=== PATIENT | male | born 1965 | race Caucasian/White ===

== ENCOUNTER 2021-11-21 04:41 | Inpatient (IN) | payer OTHER ==
[~2021-11-21] VITALS: Ht 172.7 cm; Wt 89.8 kg
[2021-11-21 09:00] VITALS: BP 115/67; BP 151/67
[2021-11-21 11:09] LABS: CHOLESTEROL 67 mg/dL (<200); HDL CHOLESTEROL 35 mg/dL (>40); LDL CHOLESTEROL 12 mg/dL (<100); TC:HDL 1.9 Ratio (Not establshd); TRIGLYCERIDE 100 mg/dL (<150); VLDL 20 mg/dL (<40)
[2021-11-21 12:00] VITALS: BP 151/67
[2021-11-21 12:42] LABS: CALCIUM 8.5 mg/dL (8.5-10.1); CREATININE 2.9 mg/dL (0.7-1.3); POTASSIUM 5.5 mmol/L (3.5-5.1)
[2021-11-21 12:46] LABS: % SATURATION 6 % (20-39); IRON 23 ug/dL (65-175); TIBC 360 ug/dL (250-450)
[2021-11-21 13:21] LABS: FOLIC ACID 12.3 ng/mL (8.6-58.9)
[2021-11-21 15:00] VITALS: BP 111/76
--- NOTE | 2021-11-21 19:57 | NUR ---
Pt is A&0x4, VS stable and afebrile. Pt was given GI cocktail to r/o possible GI issues which could be causing elevated troponin. Elevated troponin was reported to TOWER DIRECTOR and documented. Pt reported that the pain is not d/t GI and that his chest hurts. When asked pt reported that at other facility he was given Demerol which is the only thing that helped. Nitroglycerine was offered and one tab given. Pt stated that it hasn't helped in the past. Continue to monitor.
[2021-11-21] MEDS ORDERED: CARVEDILOL12.5 MG PO (20:14)
[2021-11-21] MEDS ORDERED: WARFARIN SODIUM5 MG PO (20:14)
[2021-11-21 20:15] VITALS: BP 100/74
[2021-11-21] MEDS ORDERED: PLAVIX 75 MG TA75 MG PO (20:15)
[2021-11-21] MEDS ORDERED: LIPITOR40 MG PO (20:16)
[2021-11-21] MEDS ORDERED: TORSEMIDE100 MG PO (20:16)
[2021-11-21] MEDS ORDERED: OMEPRAZOLE40 MG PO (20:17)
[2021-11-21] MEDS ORDERED: DEPAKOTE 250MG250 MG PO (20:17)
[2021-11-21] MEDS ORDERED: ASA81BEC PO (20:18)
[2021-11-22 04:45] VITALS: BP 125/90
[2021-11-22 07:45] VITALS: BP 106/79
--- NOTE | 2021-11-22 08:37 | NUR ---
PT AMBULATING TO BATHROOM WITH STANDBY ASSIST AND IS TOLERATING FAIR. COMPLAINING GENERALIZED NON CARDIC CHEST PAIN--REFUSED PAIN MEDS. FREQUENT OBSERVATION.
[2021-11-22 09:53] LABS: ABSOLUTE NEUTROPHILS 5.2 thou/uL (1.4-8.2); BASOPHILS 1.1 % (0.0-2.0); EOSINOPHILS 2.3 % (0.0-3.0); HEMATOCRIT 29.7 % (42.0-52.0); INR 1.36; MCH 23.8 pg (26.0-34.0); MCHC 30.3 g/dL (28.0-37.0); MCV 78.6 fL (80.0-100.0); MONOCYTES 7.4 % (1.0-8.0); PLATELET COUNT 554 thou/uL (150-400); POLYS 66.2 % (36.0-66.0); PROTIME 14.6 Seconds (10.5-12.1); RBC 3.78 mil/uL (4.50-6.00); RDW 18.8 % (10.5-14.5); WBC 7.8 thou/uL (4.0-11.0)
[2021-11-22 10:10] LABS: CALCIUM 8.4 mg/dL (8.5-10.1); CREATININE 3.2 mg/dL (0.7-1.3); MAGNESIUM 1.7 mg/dL (1.8-2.4); POTASSIUM 5.1 mmol/L (3.5-5.1)
[2021-11-22 13:00] VITALS: BP 124/94
[2021-11-22 16:00] VITALS: BP 128/87
--- NOTE | 2021-11-22 18:28 | NUR ---
PT ALERT AND ORIENTED TIMES FOUR, WITH VERY BLUNTED AFFECT AT THE START OF THE SHIFT. VSS, IVF INFUSING PER ORDER. PT C/O PAIN PRN PAIN MEDICATIONS CONTROLLING PAIN WELL. PT TOLERATES MEDS AND MEALS. PT UP TO RESTROOM WITH STANDBY ASSIST. PT AT BEDSIDE THIS EVENING. WILL CONTINUE TO MONITOR.
[2021-11-22 20:57] VITALS: BP 147/92
[2021-11-23 05:51] VITALS: BP 106/86
--- NOTE | 2021-11-23 09:35 | HC ---
[facility] [place] [address] CONSULTATION Name: RUBEN DONOHUE Room #: 218-P [facility] IN ..#: [id number] Admission: 11/21/21 Attend Phys: Willie Lopez MD Discharge: Date of : 61 Report #: [id number] THIS REPORT FOR: cc: Courtney Martinez MD,Courtney HicksgaLd romero MD ~ cc: Inocente Ge MD, Courtney Martinez MD, Rosalinda Broussard, GASTON DATE OF SERVICE: 11/22/2021 HISTORY OF PRESENT ILLNESS: The patient is a 56-year-old male who had a recent WV requiring cardiac catheterization with stent placement on 11/10/2021. This was performed at [facility]. He was discharged home. He was readmitted at his local facility for recurrent chest pain as well as midepigastric abdominal pain, transferred here for further evaluation. He is being evaluated by Cardiology at this time. Plan is for echocardiogram. They have been following his labs and EKGs. Reason for GI consultation is previous history of gastric bypass surgery. He states this was 8 years ago. The patient states he has had a previous history of peptic ulcer disease. It appears he had an upper endoscopy and a colonoscopy approximately 7 or 8 months ago. I do not have a copy of these results. He states they found a small ulceration on upper endoscopy. No signs of bleeding at that time, the patient had already been taking Prilosec as well as Carafate, which he has been taking for many years. He denies any nausea or vomiting. He denies any dysphagia. His weight has been stable. His bowel movements have been normal. He denies any melanotic stools, bright red blood or maroon-colored stools. He is averaging bowel movement approximately every 3 days. Colonoscopy reportedly was negative. He states that no polyps were noted on exam. His hemoglobin here on admission is 9.0. I do not have a copy of the old ones to compare. On admission, he was complaining of upper chest pain as well as midepigastric abdominal pain. He states the pain has now improved. He denies any shortness of breath. No fevers or chills currently. No cough. PAST MEDICAL HISTORY: Recent STEMI, requiring stent placement, history of coronary artery disease, hypertension, chronic renal disease, COPD with O2 use at home. Degenerative joint disease, obesity, history of peptic ulcer disease, previous history of gastric bypass for obesity, approximately 8 years ago, left knee surgery, previous history of DVT. REVIEW OF SYSTEMS: As per HPI. ALLERGIES: No known drug allergies. FAMILY HISTORY: Negative for colon cancer. [address] [address] CONSULTATION Name: DAVE DONOHUETeddy Peralta Room #: 218-P [facility] IN ..#: [id number] Admission: 11/21/21 Attend Phys: Willie Lopez MD Discharge: Date of : 61 Report #: [id number] SOCIAL HISTORY: He has a long history of smoking in the past. He states he rarely smokes at this time. Denies any alcohol use. CURRENT MEDICATIONS: Carafate 4 times a day, morphine p.r.n., Depakote, Plavix, albuterol, Atrovent, atorvastatin, budesonide, insulin, Protonix, he is on 40 b.i.d., MiraLax once a day, Zofran p.r.n., nitroglycerin p.r.n., Tylenol p.r.n. PHYSICAL EXAMINATION: VITAL SIGNS: Temperature is 36.5, pulse 75, blood pressure 106/79, respiratory rate is 18. GENERAL: He is alert and oriented x3, in no acute distress. HEENT: Sclerae nonicteric. Oropharynx clear. NECK: Supple. CARDIOVASCULAR: Regular rate. CHEST: Decreased breath sounds bilaterally. ABDOMEN: Obese, soft. He is minimally tender to palpation in the midepigastrium. Nondistended. Normoactive bowel sounds. EXTREMITIES: No cyanosis. Trace edema is noted in the lower extremities bilaterally. LABORATORY DATA: WBC 7.8, hemoglobin 9.0, MCV 78.6, platelet count 554. INR 1.36. Sodium 138, potassium 4.3, chloride 105. BUN 57, creatinine 3.2, glucose 128. Iron is 23, TIBC 360, percent sat is 6, ferritin 21. Troponin , triglycerides 100, cholesterol . Folate 12.3. Chest x-ray here yesterday cardiomegaly noted, nodular prominence of the hilum, old left rib fractures. ASSESSMENT AND PLAN: Anemia, iron deficiency. The patient denies any obvious blood in his stools. He has a previous history of gastric bypass and reportedly despite being on PPI therapy and Carafate, he has had a history of ulcer on upper endoscopy. He does report mid epigastric abdominal pain as well as chest pain; however, this is improving. Cardiology is following due to his chest pain and recent WV with stent placement. Would continue current regimen of Carafate and PPI therapy. The patient is high risk for repeat upper endoscopy at this time with recent STEMI. We will Hemoccult test his stools and continue to monitor his hemoglobin closely. Thank you for allowing me to participate in his care. <ELECTRONICALLY SIGNED> By: Ld Souza MD 11/23/21 0935 1111 1209 Ld Souza MD /nt
[2021-11-23 12:26] VITALS: BP 140/103
[2021-11-23 17:25] VITALS: BP 107/79
--- NOTE | 2021-11-23 19:21 | NUR ---
PATIENT REFUSED ALL VENIPUNCTURES AND ACCUCHECKS EXCEPT FOR HIS AC DINNER. PATIENT D/C HIS LT HAND IV BY PULLING ON HIS IV TUBING. REFUSED ATTEMPTS FOR A NEW IV ANYWHERE EXCEPT FOR HIS HANDS, 2N STAFF UNSUCCESSFUL, IV TEAM ONLY FOUND SITE IN LEFT FA. PATIENT REFUSED. VQ SCAN UNABLE TO BE COMPLETED D/T PATIENT REFUSING IV PLACEMENT. AFTER PATIENT REALIZED HE COULD NOT GET HIS IV PAIN MEDICATION, HE AGREED TO LEFT FOREARM IV BY IV TEAM. LE US AND ECHO COMPLETED. WILL CONTINUE TO MONITOR.
[2021-11-23 20:17] VITALS: BP 110/80
[2021-11-23 23:27] VITALS: BP 127/81
[2021-11-24 04:44] VITALS: BP 124/79
[2021-11-24 05:19] LABS: ABSOLUTE NEUTROPHILS 7.1 thou/uL (1.4-8.2); BASOPHILS 0.4 % (0.0-2.0); EOSINOPHILS 1.7 % (0.0-3.0); HEMATOCRIT 28.5 % (42.0-52.0); HEMOGLOBIN 8.8 gm/dL (14.0-18.0); LYMPHOCYTES 15.5 % (24.0-44.0); MCH 24.4 pg (26.0-34.0); MCV 78.7 fL (80.0-100.0); MONOCYTES 9.4 % (1.0-8.0); PLATELET COUNT 502 thou/uL (150-400); RBC 3.61 mil/uL (4.50-6.00); RDW 18.8 % (10.5-14.5); WBC 9.7 thou/uL (4.0-11.0)
[2021-11-24 05:29] LABS: ALBUMIN 2.3 g/dL (3.4-5.0); CALCIUM 8.3 mg/dL (8.5-10.1); CREATININE 3.5 mg/dL (0.7-1.3); MAGNESIUM 1.7 mg/dL (1.8-2.4); PHOSPHORUS 5.7 mg/dL (2.6-4.7); POTASSIUM 5.3 mmol/L (3.5-5.1); TOTAL BILIRUBIN 0.7 mg/dL (0.2-1.0); TOTAL PROTEIN 6.9 g/dL (6.4-8.2)
[2021-11-24 06:09] LABS: URINE BILIRUBIN NEGATIVE (Negative); URINE BLOOD 1+ (Negative); URINE CLARITY CLEAR; URINE COLOR YELLOW; URINE GLUCOSE-RANDOM* NEGATIVE (Negative); URINE KETONES NEGATIVE (Negative); URINE LEUKOCYTES NEGATIVE (Negative); URINE NITRITE NEGATIVE (Negative); URINE PROTEIN (DIPSTICK) 2+ (Negative); URINE SPECIFIC GRAVITY 1.025 (1.005-1.035); URINE UROBILINOGEN 0.2 E.U./dl (0.2-1.0)
[2021-11-24 06:14] LABS: URINE CREATININE-RANDOM* 66.8 mg/dL; URINE PROTEIN-RANDOM* 216.5 mg/dL (<11.9)
[2021-11-24 06:38] LABS: SQUAMOUS 0-3 Few /LPF (0-3)
[2021-11-24 06:39] LABS: CASTS None Seen /LPF (None Seen); MUCUS 0-3 Light strn/LPF (None Seen)
[2021-11-24 06:40] LABS: BACTERIA None Seen /HPF (None Seen); CRYSTALS None Seen /LPF (None Seen); URINE RBC 1-2 Rare /HPF (NONE SEEN); URINE WBC 1-5 Rare /HPF (NONE SEEN)
[2021-11-24 07:00] VITALS: BP 126/97
--- NOTE | 2021-11-24 07:14 | EKG ---
[address] [address] ELECTROCARDIOGRAM REPORT Name: DAVE DONOHUETeddy Peralta Room #: 218-P ADM IN .R.#: [id number] Admission: 11/21/21 Attend Phys: Willie Lopez MD Discharge: Date of : 61 Report #: [id number] [facility] Test Date: 2021-11-21 Test Time: 09:21:43 Pat Name: RUBEN DONOHUE Department: Room: 218 P Gender: M Ccie: GAB : 1965 Requested By: Rosalinda Broussard Order Number: [id number] MD: Nikos Garibay Measurements Intervals [place] Rate: 85 P: 84 NE: 182 QRS: 124 QRSD: 112 T: 83 QT: 372 QTc: 443 Interpretive Statements Sinus rhythm Multiple premature complexes, vent & supraven Probable left atrial enlargement Borderline intraventricular conduction delay Low voltage, extremity leads Borderline repolarization abnormality No previous ECG available for comparison Electronically Signed On 11-24-2021 7:13:49 MELTER SUPERVISOR [employer] HEAR[employer]NACE by Nikos Garibay [email or web address] <ELECTRONICALLY SIGNED> By: Nikos Garibay MD, [facility] 11/24/21 0713 0 0 Nikos Garbiay MD, [facility] /EPI
--- NOTE | 2021-11-24 07:25 | 2DMMODE ---
[facility] [place] [address] 2 D/M-MODE ECHOCARDIOGRAM Name: RUBEN DONOHUE Fabian Room #: 218-P ADM IN .R.#: [id number] Admission: 11/21/21 Attend Phys: Willie Lopez MD Discharge: Date of : 61 Report #: [id number] THIS REPORT FOR: cc: Courtney Martinez MD, Angela Michelle MD Santiago, Patrick MD [facility] ~ APPROVED REPORT Study performed: 11/23/2021 09:03:26 EXAM: Comprehensive 2D, Doppler, and color-flow Echocardiogram Patient Location: Bedside Room #: 218 Status: on-call HR: 80 bpm BP: 106/86 mmHg Rhythm: Regular Other Information Study Quality: Adequate Indications Dyspnea Chest Pain Elevated troponin. Recent STEMI s/p PCI. COPD. 2D Dimensions RVDd: 58.30 mm IVSd: 13.58 (7-11mm) LVDd: 53.42 mm PWd: 11.78 (7-11mm) Ascending Ao: 35.22 (22-36mm) LVDs: 45.20 (25-40mm) Left Atrium: 50.65 (27-40mm) Aortic Root: 35.97 mm Volumes Left Atrial Volume (Systole) Single Plane 4CH: 64.11 mL Single Plane 2CH: 74.47 mL Mitral Valve E/A Ratio: 0.5 MV Decel. Time: 134.91 ms MV E Max Aj.: 0.37 m/s [facility] [address] [place] [address] 2 D/M-MODE ECHOCARDIOGRAM Name: CHARANJITRUBEN Room #: 218-P [facility] IN [facility]#: [id number] Admission: 11/21/21 Attend Phys: Willie Lopez MD Discharge: Date of : 61 Report #: [id number] MV A Aj.: 0.80 m/s MV PHT: 39.13 ms Pulmonary Valve PV Peak Aj.: 0.91 m/s PV Peak Gr.: 3.31 mmHg Pulmonary Vein P Vein S: 0.45 m/s P Vein D: 0.42 m/s P Vein S/D Ratio: 1.07 Tricuspid Valve TR Peak Aj.: 3.94 m/s RAP Estimate: 15.00 mmHg TR Peak Gr.: 62.08 mmHg PA Pressure: 77.00 mmHg Left Ventricle The left ventricle is normal size. Flattened septum consistent with right ventricular pressure overload. Mild concentric left ventricular hypertrophy. Left ventricular systolic function is moderately decreased. LVEF is 35%. Mild diastolic dysfunction is present (impaired relaxation pattern). Right Ventricle Right ventricle is severely dilated. Right ventricle is severely hypokinetic. Atria Severe biatrial enlargement. Right > Left. Aortic Valve The Aortic valve is sclerotic. Trace aortic regurgitation. There is no aortic valvular stenosis. Mitral Valve The mitral valve is normal in structure. Trace to mild mitral regurgitation. No evidence of mitral valve stenosis. Tricuspid Valve The tricuspid valve is normal in structure. Moderate tricuspid regurgitation. Severe pulmonary hypertension. Estimated PAP is 75mmHg. Pulmonic Valve The pulmonary valve is normal in structure. Mild pulmonic regurgitation. [facility] [address] [place] [address] 2 D/M-MODE ECHOCARDIOGRAM Name: RUBEN DONOHUE Room #: 218-P [facility] IN [facility]#: [id number] Admission: 11/21/21 Attend Phys: Willie Lopez MD Discharge: Date of : 61 Report #: [id number] Great Vessels The aortic root is normal in size. The ascending aorta is normal in size. IVC is dilated and collapses <50% with inspiration. Pericardium There is no pericardial effusion. <Conclusion> Normal left ventricle size with mild concentric hypertrophy Global hypokinesis ejection fraction 35% "D-shaped "LV compatible with right ventricular pressure/volume overload Right ventricle severely dilated/hypokinetic Severe biatrial enlargement Trace aortic/mitral valve insufficiency Moderate tricuspid valve insufficiency Severe pulmonary hypertension Pulmonary artery systolic pressure estimated at 75 mmHg None no pericardial effusion Normal aortic root size <ELECTRONICALLY SIGNED> By: Nikos Garibay MD, [facility] 11/24/21 0725 4 Nikos Garibay MD, FACC /INF
--- NOTE | 2021-11-24 07:26 | NUR ---
Patient making slow progress towards outcome goals picks and chooses care he allows done. He discontinued his IV and would only allow IV nurse to restart. Repeatedly informed for need to collect urine and stool specimen. He is up adlib to BR and keeping missing collection. Vital signs and rhythm stable. Complained of dizziness, oxygen level less than optimal on room air. He does wear oxygen PRN at home. Placed on 2L/NC sat not mid 90's.
[2021-11-24 11:00] VITALS: BP 122/73
[2021-11-24 16:00] VITALS: BP 136/89
[2021-11-24 20:35] VITALS: BP 122/70
[2021-11-25] VITALS (27 sets, daily range): BP systolic 68–145; BP diastolic 44–92
--- NOTE | 2021-11-25 04:26 | NUR ---
PT DROWSEY AT START OF SHIFT, VSS, REFUSING BG CHECK, NPO SINCE MNOC FOR EGD IN AM, STILL NEED STOOL FOR OB, O2 SATS 99% ON 2L/NC, PRN PAIN MEDS GIVEN FOR NON CARDIC CHEST PAIN, UP AD CLINT IN ROOM, WILL CON'T TO MONITOR PER PPOC.
[2021-11-25 06:12] LABS: ALBUMIN 2.3 g/dL (3.4-5.0); CALCIUM 8.3 mg/dL (8.5-10.1); CREATININE 3.5 mg/dL (0.7-1.3); POTASSIUM 4.3 mmol/L (3.5-5.1)
[2021-11-25 08:33] LABS: HEMATOCRIT 29.8 % (42.0-52.0); MCH 23.8 pg (26.0-34.0); MCHC 30.2 g/dL (28.0-37.0); MCV 78.9 fL (80.0-100.0); RBC 3.78 mil/uL (4.50-6.00); RDW 19.6 % (10.5-14.5); WBC 7.7 thou/uL (4.0-11.0)
[2021-11-25 11:09] LABS: INR 1.47; PROTIME 15.7 Seconds (10.5-12.1)
--- NOTE | 2021-11-25 16:37 | NUR ---
CM MET WITH PT THIS DAY HOWEVER PT WAS SLEEPING SO VISIT MADE. PER NURSING NOTES PT UP ADLIB IN ROOM AND ANTICIPATE NO HOME NEEDS. NO PT/OT ORDERS. WILL CONTINUE TO ASSESS DISCHARGE NEEDS. CM FOLLOWING.
--- NOTE | 2021-11-25 18:04 | NUR ---
AT APPROX 1638 PATIENT CALLED ME INTO THE ROOM TO INFORM HE WAS ABLE TO PROVIDE A STOOL SAMPLE, PATIENT UP AD CLINT, STEADY ON FEET. SLEEPY BUT APPROPRIATLY RESPONSIVE AT THAT TIME. AT APPROX. 1700 THE PATIENTS TELE MONITOR WENT INTO WHAT APPEARED TO BE VTACH. UPON ENTERING THE ROOM TO CHECK ON THE PATIENT THE PATIENT WAS UNRESPONSIVE WITH AGONAL BREATHING AND BLUE LIPS, PULSE CHECKED NO PULSE FOUND - CODE CALLED AT 1702 AND COMPRESSIONS STARTED. CODE TEAM ARRIVED AT 1704, ROSC AT 1708. SEE CODE BLUE SHEET IN CHART FOR MEDS AND CODE DOCUMENTATION. PATIENT TAKEN TO ICU WITH RT,CARD GRADER AND ICU NURSE. PT WENT TO ROOM 237, REPORT GIVEN AT BEDSIDE. SIGNIFICANT OTHER LUCIANA CALLED AND INFORMED OF CHANGE IN PATIENT CONDITION AND MOVE TO ICU.
--- NOTE | 2021-11-25 18:24 | NUR ---
A #5F TRIPLE LUMEN CENTRAL LINE WAS PLACED PER HOSPITAL POLICY AFTER A BEDSIDE TIMEOUT WAS COMPLETED. THE LINE WAS TRIMMED TO 25CM AND ADVANCED WITHOUT DIFFICULTY. A STAT CHEST XRAY WAS ORDERED FOR TIP CONFIRMATION.
[2021-11-25 18:48] LABS: D-DIMER 4.52 ug/mLFEU (0.19-0.50)
[2021-11-25 19:21] LABS: BE(vivo) -7.4 mmol/L (-2 to +3); HCO3 20.5 mmol/L (22.0-26.0); PCO2 52.8 mmHg (35.0-45.0); PO2 142.6 mmHg (80.0-100.0); sO2 98.3 % (92.0-98.0)
[2021-11-25 19:22] LABS: pH 7.206 (7.360-7.450)
[2021-11-25 20:14] LABS: HEMOGLOBIN 9.5 gm/dL (14.0-18.0); MCHC 29.3 g/dL (28.0-37.0); RBC 4.01 mil/uL (4.50-6.00)
[2021-11-25 20:16] LABS: HEMATOCRIT 32.3 % (42.0-52.0); MCH 23.7 pg (26.0-34.0); MCV 80.7 fL (80.0-100.0); PLATELET COUNT 496 thou/uL (150-400); RDW 19.6 % (10.5-14.5); WBC 12.3 thou/uL (4.0-11.0)
[2021-11-25 20:19] LABS: CALCIUM 8.3 mg/dL (8.5-10.1); CREATININE 3.9 mg/dL (0.7-1.3); POTASSIUM 4.8 mmol/L (3.5-5.1)
[2021-11-25 20:21] LABS: APTT 36.7 Seconds (24.5-32.8); INR 1.4
[2021-11-25 20:28] LABS: MAGNESIUM 1.9 mg/dL (1.8-2.4); PHOSPHORUS 6.3 mg/dL (2.5-4.9)
[2021-11-25 20:50] LABS: ABSOLUTE NEUTROPHILS 8.2 thou/uL (1.4-8.2); NUCLEATED RBCS 3 /100WBC
[2021-11-25 20:51] LABS: ANISOCYTOSIS 2+; HYPOCHROMASIA 1+; LARGE PLATELETS FEW; MICROCYTES 1+; PLATELET ESTIMATE INCREASED; POIKILOCYTOSIS 1+; POLYCHROMASIA 2+; SCHISTOCYTES 1+
[2021-11-25 23:03] LABS: BE(vivo) -7.9 mmol/L (-2 to +3); HCO3 18.9 mmol/L (22.0-26.0); PCO2 44.5 mmHg (35.0-45.0); PO2 344.3 mmHg (80.0-100.0); sO2 99.7 % (92.0-98.0)
[2021-11-25 23:10] LABS: pH 7.247 (7.360-7.450)
[2021-11-26] VITALS (67 sets, daily range): BP systolic 81–125; BP diastolic 51–87
[2021-11-26 05:06] LABS: HEMOGLOBIN 8.4 gm/dL (14.0-18.0)
[2021-11-26 05:08] LABS: HEMATOCRIT 26.6 % (42.0-52.0); MCH 24.8 pg (26.0-34.0); MCHC 31.7 g/dL (28.0-37.0); MCV 78.5 fL (80.0-100.0); RBC 3.39 mil/uL (4.50-6.00); RDW 19.1 % (10.5-14.5)
[2021-11-26 05:58] LABS: CALCIUM 8.2 mg/dL (8.5-10.1); CREATININE 3.8 mg/dL (0.7-1.3); PHOSPHORUS 5.1 mg/dL (2.5-4.9)
[2021-11-26 06:11] LABS: POTASSIUM 3.6 mmol/L (3.5-5.1)
--- NOTE | 2021-11-26 07:50 | NUR ---
SEE HYPOTHERMIA FLOWSHEET FOR VS AND EVENTS. CONT PLAN OF CARE
--- NOTE | 2021-11-26 08:24 | EKG ---
[address] [address] ELECTROCARDIOGRAM REPORT Name: RUBEN DONOHUE Room #: 237-P ADM IN M.R.#: [id number] Admission: 11/21/21 Attend Phys: Willie Lopez MD Discharge: Date of : 61 Report #: [id number] Test Date: 2021-11-26 Test Time: 07:44:38 Pat Name: RUBEN DONOHUE Department: Room: 237 P Gender: M Datastage Consultant: DERRICK : 1965 Requested By: Martha Quezada Order Number: [id number] MD: Nikos Garibay Measurements Intervals Max Rate: 57 P: 80 FL: 199 QRS: 126 QRSD: 131 T: 93 QT: 487 QTc: 475 Interpretive Statements Sinus rhythm Nonspecific intraventricular conduction delay Borderline repolarization abnormality Compared to ECG 11/25/2021 17:32:28 Intraventricular conduction delay now present Ventricular premature complex(es) no longer present Aberrant conduction of supraventricular beat(s) no longer present Left posterior fascicular block no longer present Electronically Signed On 11-26-2021 8:24:10 PROP MAKER by Nikos Garibay [email or web address] <ELECTRONICALLY SIGNED> By: Nikos Garibay MD, FAC 11/26/21 0824 Nikos Garibay MD, [facility] /EPI
--- NOTE | 2021-11-26 12:31 | NUR ---
PT ADMITTED RELATED TO N STEMI. CM REVIEWED CHART AND SPOKE WITH CARE TEAM. CM CALLED AND SPOKE WITH PT'S SIGNIFICANT OTHER KARIN SHAW . SHE INDICATED THAT SHE AND PT RESIDE IN A HOUSE WITH NO STEPS TO ENTER AND NO STEPS THAT PT USES INSIDE. SIG OTHER INDICATED THAT THEY HAVE BEEN TOGETHER FOR 20 YRS AND OWN A HOUSE TOGETHER. SHE INDICATED THAT PT HAD DISCHARGED HOME FROM [facility] 11/15 WITH [facility]. SHE INDICATED THAT PT HADN'T BEEN MOVING AROUND A LOT SEWING MACHINE ADJUSTER AND THAT BATHING HAD TAKEN A LOT OUT OF PT. SIG OTHER INDICATED NO DME SEWING MACHINE ADJUSTER BUT THAT PT WAS GOING TO ASK HH OT ABOUT A SHOWER CHAIR. PT HAD CODE BLUE CALLED ON 2N AND HAD BEEN INTUBATED AND TRANSFERED TO ICU. CM FOLLOWING. MARLENE TO NOTIFY ANNABELSLID OF ADMISSION.
--- NOTE | 2021-11-26 14:47 | NUR ---
ON THE VENT ON HYPOTHERMIA PROTOCOL. LEVO TITRATED FOR MAP >65. SEDATED PER HYPOTHERMIA PROTOCOL. PATIENT'S SPOUSE AT THE BEDSIDE ALL DAY AND UPDATED BY MDs THEY ROUNDED. ICU GUIDELINES AND PRIVACY CODE GIVEN TO SPOUSE. WILL CONTINUE WITH POC.
[2021-11-27] VITALS (112 sets, daily range): BP systolic 75–201; BP diastolic 48–124
[2021-11-27 05:07] LABS: HEMATOCRIT 28.7 % (42.0-52.0); MCH 24.7 pg (26.0-34.0); MCHC 31.4 g/dL (28.0-37.0); MCV 78.4 fL (80.0-100.0); RBC 3.66 mil/uL (4.50-6.00); RDW 19.2 % (10.5-14.5); WBC 8.4 thou/uL (4.0-11.0)
[2021-11-27 05:11] LABS: CALCIUM 8.3 mg/dL (8.5-10.1); CREATININE 3.8 mg/dL (0.7-1.3); PHOSPHORUS 5.6 mg/dL (2.5-4.9); POTASSIUM 3.6 mmol/L (3.5-5.1)
[2021-11-27 05:40] LABS: BE(vivo) -5.8 mmol/L (-2 to +3); HCO3 20.5 mmol/L (22.0-26.0); PCO2 43.7 mmHg (35.0-45.0); PO2 181.3 mmHg (80.0-100.0); sO2 99.1 % (92.0-98.0)
[2021-11-27 05:41] LABS: pH 7.289 (7.360-7.450)
--- NOTE | 2021-11-27 07:22 | NUR ---
0455 PT WENT INTO VTACH ON THE ROPEWALK ROPE MAKER. PT WAS FOUND PULSELESS. COMPRESSIONS WERE STARTED AND A CODE BLUE WAS CALLED. REFER TO CODE BLUE SHEET. PT WAS STARTED ON AMIO GTT. CARDIOLOGY WAS CALLED, NO NEW ORDERS. DR. SMITH WAS CALLED, ORDERS RECEIVED. (KARIN) WAS CALLED AND NOTIFIED OF THE EVENTS, PLANS TO VISIT AT [address] JORDAN ROUNDING AND NOTIFIED OF THE EVENTS.
--- NOTE | 2021-11-27 07:39 | EKG ---
[address] [place] [address] ELECTROCARDIOGRAM REPORT Name: DAVE DONOHUETeddy Peralta Room #: 237-P ADM IN M.R.#: [id number] Admission: 11/21/21 Attend Phys: Willie Lopez MD Discharge: Date of : 61 Report #: [id number] [facility] Test Date: 2021-11-25 Test Time: 17:32:28 Pat Name: RUBEN DONOHUE Department: Room: 237 P Gender: M Document Control Clerk: : 1965 Requested By: Willie Lopez Order Number: [id number] MD: Nikos Garibay Measurements Intervals [place] Rate: 98 P: 54 VA: 179 QRS: 119 QRSD: 119 T: -26 QT: 380 QTc: 486 Interpretive Statements Sinus rhythm Paired ventricular premature complexes Aberrant complex Left posterior fascicular block Low voltage, extremity leads Compared to ECG 11/21/2021 09:21:43 Ventricular premature complex(es) now present Aberrant conduction of supraventricular beat(s) now present Left posterior fascicular block now present Electronically Signed On 11-27-2021 7:39:23 PALLET RECTIFIER by Nikos Garibay [email or web address] <ELECTRONICALLY SIGNED> By: Nikos Garibay MD, FACC 11/27/21 0739 173 [id number] Nikos Garibay MD, FAC /EPI
--- NOTE | 2021-11-27 08:53 | 2DMMODE ---
[address] [address] 2 D/M-MODE ECHOCARDIOGRAM Name: RUBEN DONOHUE Room #: 237-P ADM IN M.R.#: [id number] Admission: 11/21/21 Attend Phys: Willie Lopez MD Discharge: Date of : 61 Report #: [id number] THIS REPORT FOR: cc: Courtney Martinez MD, Angela Michelle MD Santiago, Patrick MD [facility] ~ ADDENDUM APPROVED REPORT Study performed: 11/26/2021 12:32:59 EXAM: Comprehensive 2D, Doppler, and color-flow Echocardiogram Patient Location: ICU Room #: 237 Status: routine BSA: 2.21 HR: 51 bpm BP: 97/71 mmHg Rhythm: Bradycardia Other Information Study Quality: Good Indications CAD S^P Code blue 2D Dimensions IVC: 30.00 mm Tricuspid Valve TR Peak Aj.: 3.29 m/s TR Peak Gr.: 43.26 mmHg PA Pressure: 58.00 mmHg Left Ventricle The left ventricle is normal size. There is normal left ventricular wall thickness. Left ventricular ejection fraction is severely decreased. Left ventricular apical thrombus is present. LVEF is 25-30%. Right Ventricle Right ventricle is dilated. Right ventricle is hypokinetic. [address] [address] 2 D/M-MODE ECHOCARDIOGRAM Name: RUBEN DONOHUE Room #: 237-P ADM IN M.R.#: [id number] Admission: 11/21/21 Attend Phys: Willie Lopez MD Discharge: Date of : 61 Report #: [id number] Atria The left atrium size is normal. Right atrium is dilated. Aortic Valve The aortic valve is normal in structure. No aortic regurgitation is present. There is no aortic valvular stenosis. Mitral Valve The mitral valve is normal in structure. Mild mitral regurgitation. No evidence of mitral valve stenosis. Tricuspid Valve The tricuspid valve is normal in structure. There is mild tricuspid regurgitation. Estimated PAP 58 mmHg. There is moderate pulmonary hypertension. Pulmonic Valve The pulmonary valve is normal in structure. Great Vessels The aortic root is normal in size. The inferior vena cava is dilated with no inspiratory collapse. Pericardium Trace pericardial effusion. <Conclusion> Normal left ventricle size/wall thickness central ejection fraction 20-25% Global hypokinesis more prominent in the axial septum Echogenicity at the left ventricular apex suspicious for clot Right ventricle moderately dilated/severe hypokineses Mild biatrial enlargement Normal aortic valve structure and function Mild mitral valve insufficiency Mild tricuspid valve insufficiency Portal hypertension PA pressure estimated 58 mmHg Trace pericardial effusion Normal aortic root size. <ELECTRONICALLY SIGNED> By: Nikos Garibay MD, [facility] 11/27/21 0853 0853 0853 Nikos Garibay MD, FACC /INF
--- NOTE | 2021-11-27 12:51 | NUR ---
ON THE VENT WITH LIGHT SEDATION. ON LEVO AND AMIO GTTs AND STARTED ON HEPARIN GTT PER PE PROTOCOL. PATIENT CONTINUES TO BE NORMATHERMIC. DOES NOT FOLLOW COMMANDS AT THIS TIME. SPOUSE AT THE BEDSIDE AND UPDATED AND QNS ANSWERED. VQ SCAN HELD OFF FOR NOW SINCE PATIENT UNSTABLE AND ON PRESSORS AND CARDIOLOGY SANDER AND BUFFER JEIMY NOTIFIED. WILL CONTINUE WITH POC.
--- NOTE | 2021-11-27 15:41 | NUR ---
56 year old males who was coded from going into V-tach overnight and remains Sedated, Intubated, on the Vent. Completed Hypothermia,. Currently on Levophed and Amiodarone gtt. Patient's significant other remains in the room at bedside: Prashant Sutherland at [phone]. CM will follow as needed, but will monitor ability to due so pending critical care treatments at this time.
--- NOTE | 2021-11-27 21:51 | NUR ---
This RN spoke to [facility] at 2693. Reported they will not be following daily.
[2021-11-28] VITALS (73 sets, daily range): BP systolic 75–135; BP diastolic 50–94
[2021-11-28 04:33] LABS: BASOPHILS 0.2 % (0.0-2.0); HEMATOCRIT 31.2 % (42.0-52.0); HEMOGLOBIN 9.5 gm/dL (14.0-18.0); LYMPHOCYTES 3.6 % (24.0-44.0); MCH 24.1 pg (26.0-34.0); MCHC 30.4 g/dL (28.0-37.0); MCV 79.3 fL (80.0-100.0); MONOCYTES 1.1 % (1.0-8.0); PLATELET COUNT 442 thou/uL (150-400); POLYS 95.1 % (36.0-66.0); RBC 3.93 mil/uL (4.50-6.00); RDW 19.5 % (10.5-14.5); WBC 11.2 thou/uL (4.0-11.0)
[2021-11-28 05:05] LABS: CALCIUM 8.5 mg/dL (8.5-10.1); CREATININE 4.3 mg/dL (0.7-1.3); PHOSPHORUS 7.5 mg/dL (2.5-4.9); POTASSIUM 4.1 mmol/L (3.5-5.1); TOTAL BILIRUBIN 0.6 mg/dL (0.2-1.0); TOTAL PROTEIN 6.8 g/dL (6.4-8.2)
[2021-11-28 05:17] LABS: BE(vivo) -4.9 mmol/L (-2 to +3); HCO3 21.3 mmol/L (22.0-26.0); PCO2 43.8 mmHg (35.0-45.0); sO2 97.5 % (92.0-98.0)
[2021-11-28 05:18] LABS: pH 7.304 (7.360-7.450)
--- NOTE | 2021-11-28 09:23 | NUR ---
Rec consider start enteral nutrition of nepro at goal 35ml/hr if ok with renal and/or pulmonary physicians
[2021-11-29] VITALS (49 sets, daily range): BP systolic 87–128; BP diastolic 54–88
[2021-11-29 08:11] LABS: ALBUMIN 2.1 g/dL (3.4-5.0); CALCIUM 8.5 mg/dL (8.5-10.1); PHOSPHORUS 8.2 mg/dL (2.6-4.7); POTASSIUM 4.3 mmol/L (3.5-5.1)
--- NOTE | 2021-11-29 18:01 | NUR ---
PT HAD NO EVENTS TODAY, WAS ABLE TO DECREASE FIO2 FROM 60% TO 50%. PT PROPOFOL ALSO DECREASED TO 5MCG/KG/MIN. PT HAS POSITIVE COUGH AND GAG REFLEXES WITH SUCTIONING, PUPILS REACTIVE, FEET WILL MOVE OCCASSIONALLY. PT AT BEDSIDE MOST OF THE DAY TODAY. WILL CONTINUE TO FOLLOW POC.
[2021-11-30] VITALS (46 sets, daily range): BP systolic 92–139; BP diastolic 57–96
[2021-11-30 04:11] LABS: BE(vivo) -2.4 mmol/L (-2 to +3); HCO3 22.9 mmol/L (22.0-26.0); PCO2 41.9 mmHg (35.0-45.0); PO2 84.3 mmHg (80.0-100.0); pH 7.356 (7.360-7.450); sO2 95.9 % (92.0-98.0)
[2021-11-30 04:56] LABS: ABSOLUTE NEUTROPHILS 6.7 thou/uL (1.4-8.2); BASOPHILS 0.3 % (0.0-2.0); HEMATOCRIT 29.9 % (42.0-52.0); HEMOGLOBIN 9.3 gm/dL (14.0-18.0); LYMPHOCYTES 3.5 % (24.0-44.0); MCH 25.2 pg (26.0-34.0); MCHC 31.2 g/dL (28.0-37.0); MCV 80.8 fL (80.0-100.0); MONOCYTES 3.3 % (1.0-8.0); PLATELET COUNT 374 thou/uL (150-400); POLYS 92.9 % (36.0-66.0); RDW 19.2 % (10.5-14.5); WBC 7.7 thou/uL (4.0-11.0)
[2021-11-30 05:31] LABS: ALBUMIN 2.2 g/dL (3.4-5.0); CALCIUM 8.3 mg/dL (8.5-10.1); CREATININE 5.1 mg/dL (0.7-1.3); PHOSPHORUS 7.9 mg/dL (2.5-4.9); POTASSIUM 3.8 mmol/L (3.5-5.1); TOTAL BILIRUBIN 0.5 mg/dL (0.2-1.0); TOTAL PROTEIN 6.5 g/dL (6.4-8.2)
--- NOTE | 2021-11-30 09:53 | EKG ---
[address] [place] [address] ELECTROCARDIOGRAM REPORT Name: RUBEN DONOHUE Room #: 237-P ADM IN M.R.#: [id number] Admission: 11/21/21 Attend Phys: Willie Lopez MD Discharge: Date of : 61 Report #: [id number] [facility] Test Date: 2021-11-30 Test Time: 09:34:09 Pat Name: RUBEN DONOHUE Department: Room: 237 P Gender: M Paper Maker: GAB : 1965 Requested By: Britton Lopez Order Number: [id number] MD: Britton Lopez Measurements Intervals [place] Rate: 54 P: 55 [place]: 198 QRS: 57 QRSD: 123 T: -80 QT: 691 QTc: 656 Interpretive Statements Sinus bradycardia Occasional premature ventricular complexes Nonspecific intraventricular conduction delay Nonspecific T abnormalities, diffuse leads Compared to ECG 11/26/2021 07:44:38 Ventricular premature complex(es) now present T-wave abnormality now present Electronically Signed On 11-30-2021 9:53:14 MEDICAL INVESTIGATOR by Britton Lopez [email or web address] <ELECTRONICALLY SIGNED> By: Britton Lopez MD, [facility] 11/30/21 0953 0934 0934 Britton Lopez MD, [facility] /EPI
--- NOTE | 2021-11-30 14:00 | NUR ---
PT HR HAS BEEN 45-55 FOR THE MAJORITY OF THE DAY. CARDIOLOGY IS NOTIFIED, AMIODARONE DRIP IS DC'D. THIS PT HAD A SEDATION VACATION FOR WEANING VIA A CPAP TRIAL. HE WAS ON CPAP FOR 17 MIN THEN BECAME APNEIC. RT WAS AT THE BEDSIDE TO TURN THE VENT BACK ON AC MODE.
--- NOTE | 2021-11-30 17:37 | NUR ---
PATIENT WAS PLACED ON 86 50% FOR A CPAP TRIAL AT 1517. HE PASSED THE FIRST 5 MINUTES AND THEN BEGAN TO TRIP THE APNEA VENTILATION. HE WAS PLACED BACK ON HIS ORIGIANL SETTING OF 16/500/.40 +6
[2021-11-30 21:41] LABS: POTASSIUM 3.4 mmol/L (3.5-5.1)
[2021-11-30 21:45] LABS: MAGNESIUM 2.3 mg/dL (1.8-2.4)
--- NOTE | 2021-11-30 23:16 | NUR ---
ASSUMED CARE OF PT AT 1900. PT BEGAN GOING BRADYCARDIC INTO LOW 30'S. OBTAINED EKG AND CONTACTED CARDIOLOGY TO CLARIFY ORDERS. NO NEW ORDERS GIVEN. WILL CONTINUE TO MONITOR.
[2021-12-01] VITALS (45 sets, daily range): BP systolic 99–134; BP diastolic 58–95
[2021-12-01 04:19] LABS: HEMATOCRIT 30.9 % (42.0-52.0); HEMOGLOBIN 9.4 gm/dL (14.0-18.0); MCH 24.5 pg (26.0-34.0); MCHC 30.5 g/dL (28.0-37.0); MCV 80.3 fL (80.0-100.0); RBC 3.85 mil/uL (4.50-6.00); RDW 19.2 % (10.5-14.5); WBC 7.3 thou/uL (4.0-11.0)
[2021-12-01 04:27] LABS: ALBUMIN 2.2 g/dL (3.4-5.0); CALCIUM 8.3 mg/dL (8.5-10.1); CREATININE 4.8 mg/dL (0.7-1.3); POTASSIUM 3.6 mmol/L (3.5-5.1)
--- NOTE | 2021-12-01 07:51 | EKG ---
[address] [place] [address] ELECTROCARDIOGRAM REPORT Name: RUBEN DONOHUE Room #: 237-P ADM IN M.R.#: [id number] Admission: 11/21/21 Attend Phys: Willie Lopez MD Discharge: Date of : 61 Report #: [id number] [facility] Test Date: 2021-11-30 Test Time: 23:05:28 Pat Name: RUBEN DONOHUE Department: Room: 237 P Gender: M Assembler Body: : 1965 Requested By: Britton Lopez Order Number: [id number] MD: Britton Lopez Measurements Intervals [place] Rate: 68 P: 66 VT: 198 QRS: 82 QRSD: 129 T: -51 QT: 455 QTc: 484 Interpretive Statements Sinus rhythm Frequent premature ventricular complexes Nonspecific intraventricular conduction delay Nonspecific T wave abnormality Compared to ECG 11/30/2021 09:34:09 No significant change was found Electronically Signed On 12-01-2021 7:50:53 EMBOSSING MACHINE OPERATOR by Britton Lopez [email or web address] <ELECTRONICALLY SIGNED> By: Britton Lopez MD, [facility] 12/01/21 0750 04 Britton Lopez MD, [facility] /EPI
--- NOTE | 2021-12-01 11:05 | NUR ---
Discussed during los with the attending physician and pulmonary MD during unit round. vent 30 % fio2, peep of 6. Eyes open and following commands per report. Cpap trial possible be able to extubate off vent today. Will cont following if needs arise.
[2021-12-01 11:14] LABS: BE(vivo) -0.1 mmol/L (-2 to +3); HCO3 25.6 mmol/L (22.0-26.0); PCO2 46.7 mmHg (35.0-45.0); pH 7.357 (7.360-7.450); sO2 94.6 % (92.0-98.0)
--- NOTE | 2021-12-01 18:01 | NUR ---
PATIENT PROGRESSING TOWARDS THE PLAN OF CARE EVIDENCED BY DECREASED OXYGEN REQUIREMENTS.
[2021-12-02] VITALS (20 sets, daily range): BP systolic 101–134; BP diastolic 64–92
--- NOTE | 2021-12-02 03:30 | NUR ---
PT BECAME TACHYCARDIC WITH A HR OF 130 DURING THIS SHIFT. INFORMED SHAREPOINT CONSULTANT, NO NEW ORDERS GIVEN. WILL CONTINUE TO FOLLOW POC.
[2021-12-02 10:52] LABS: ALBUMIN 2.4 g/dL (3.4-5.0); CALCIUM 8.4 mg/dL (8.5-10.1); CREATININE 4.2 mg/dL (0.7-1.3); PHOSPHORUS 4.9 mg/dL (2.5-4.9)
--- NOTE | 2021-12-02 17:01 | NUR ---
voice message from maryjane # [phone], his state's attorney need letters saying he is in the hospital. jarrett fax # [phone] and castro fax # [phone]. Cm called maryjane back, left message for return call, will need spelling of attorneys first and las names before letter can be generated.
[2021-12-03 04:06] VITALS: BP 129/91
--- NOTE | 2021-12-03 04:44 | NUR ---
Pt is a transfer from ICU. Pt is alert and oriented to self. No sign of distress noted. Pt is stable upon arrival. Denies pain. Oxygen in place. Scheduled meds administered. Vital signs stable. Continue to monitor. No further needs at this time.
[2021-12-03 06:38] LABS: HEMATOCRIT 30.4 % (42.0-52.0); HEMOGLOBIN 9.3 gm/dL (14.0-18.0); MCH 24.9 pg (26.0-34.0); MCHC 30.6 g/dL (28.0-37.0); MCV 81.4 fL (80.0-100.0); RBC 3.74 mil/uL (4.50-6.00); RDW 19.4 % (10.5-14.5); WBC 7.2 thou/uL (4.0-11.0)
[2021-12-03 06:49] LABS: ALBUMIN 2.5 g/dL (3.4-5.0); CALCIUM 8.4 mg/dL (8.5-10.1); CREATININE 3.7 mg/dL (0.7-1.3); PHOSPHORUS 4.1 mg/dL (2.6-4.7); POTASSIUM 3.3 mmol/L (3.5-5.1)
[2021-12-03 07:21] VITALS: BP 130/102
[2021-12-03 11:30] VITALS: BP 104/69
--- NOTE | 2021-12-03 15:04 | NUR ---
Pt evaluated and accepted for 5N accept rehab stay once ICD placed; likely tomorrow. was at bedside and questions answered by the rehab mixed animal veterinarian. Pt/spouse are agreeable to the dc plan. Will follow.
[2021-12-03 15:21] VITALS: BP 108/77
[2021-12-03 15:58] LABS: BASOPHILS 0.5 % (0.0-2.0); EOSINOPHILS 0.1 % (0.0-3.0); HEMOGLOBIN 9.5 gm/dL (14.0-18.0); LYMPHOCYTES 7.7 % (24.0-44.0); MCHC 30.8 g/dL (28.0-37.0); MCV 81.2 fL (80.0-100.0); MONOCYTES 11.2 % (1.0-8.0); PLATELET COUNT 285 thou/uL (150-400); POLYS 80.5 % (36.0-66.0); RBC 3.81 mil/uL (4.50-6.00); RDW 19.4 % (10.5-14.5); WBC 8.7 thou/uL (4.0-11.0)
[2021-12-03 17:05] LABS: ANISOCYTOSIS 1+; POIKILOCYTOSIS 1+
[2021-12-03 17:06] LABS: TARGET CELLS 1+
--- NOTE | 2021-12-03 18:39 | NUR ---
Pt A & O x3. Pt received medications as ordered. PT currently on 2L of 02 per nasal cannula. PT is x 1 assist with ADLs. Pt is SR with PVC on the tele. Pt has ahmadi in place. Pt worked with PT/OT this shift. Pt is able to make needs known
[2021-12-03 19:24] VITALS: BP 126/93
[2021-12-04] VITALS (14 sets, daily range): BP systolic 63–137; BP diastolic 36–89
--- NOTE | 2021-12-04 04:19 | NUR ---
Assumed pt car at 1900. Pt is alert, forgetful. Pt at the beginning of the shift was getting agitated. Fall precaution in place. Assessment completed and documented. Scheduled meds administered to pt. Pt is NPO after midnight for an ICD placement. Pt is awake through the night despite melatonin been administered for sleep. No acute event during the night. Continue to monitor.
[2021-12-04 07:17] LABS: CALCIUM 8.9 mg/dL (8.5-10.1); CREATININE 3.2 mg/dL (0.7-1.3); POTASSIUM 3.9 mmol/L (3.5-5.1)
[2021-12-04 07:21] LABS: INR 1.18; PROTIME 12.8 Seconds (10.5-12.1)
[2021-12-04 07:23] LABS: ALBUMIN 2.5 g/dL (3.4-5.0); TOTAL BILIRUBIN 0.8 mg/dL (0.2-1.0); TOTAL PROTEIN 6.4 g/dL (6.4-8.2)
--- NOTE | 2021-12-04 10:32 | NUR ---
PATIENT CENTRAL LINE WAS PULLED BACK SEVERAL CM PM. A PIV WAS PLACED BY CCU STAFF AND A 2ND PIV WAS PLACED THIS AM BY THE VASCULAR ACCESS NURSE PROIR TO PROCEDURE. THE CENTRAL LINE WAS DISCONTINUED
--- NOTE | 2021-12-04 16:06 | NUR ---
REPORT GIVEN TO ICU, RN FOR ROOM 243. NO QUESTIONS AT TIME OF REPORT. PATIENT IN SURGERY AT TIME OF REPORT.
[2021-12-05] VITALS (51 sets, daily range): BP systolic 89–132; BP diastolic 49–86
[2021-12-05 04:40] LABS: HEMATOCRIT 31.8 % (42.0-52.0); HEMOGLOBIN 9.6 gm/dL (14.0-18.0); MCH 25.3 pg (26.0-34.0); MCHC 30.3 g/dL (28.0-37.0); MCV 83.6 fL (80.0-100.0); RBC 3.8 mil/uL (4.50-6.00); RDW 20.3 % (10.5-14.5); WBC 8.1 thou/uL (4.0-11.0)
--- NOTE | 2021-12-05 04:44 | NUR ---
assumed pt care at 1900, alert and oriented, able to voice concerns, sinus with frequent pvcs/ bigeminy/trigeminy/vent rhythm, bp stable with map >65, , pain to the chest non-cardiac treated with tyl with partial relief, shallow breaths d/t pain, clear to diminished lung sounds, able to sleep couple hrs, blood sugar stable at 88, no coverage needed,remains on 2l, o2sats stable, no acute distress will continue to monitor per poc
[2021-12-05 05:01] LABS: CALCIUM 8.5 mg/dL (8.5-10.1); CREATININE 3.1 mg/dL (0.7-1.3); POTASSIUM 3.9 mmol/L (3.5-5.1)
--- NOTE | 2021-12-05 08:28 | NUR ---
PT PLACED ON HOLD DUE TO TX TO ICU AFTER FAILED ICD PLACEMENT. REQUEST NEW P.T. ORDERS ONCE PT IS DEEMED APPROPRIATE TO RESUME THERAPEUTIC ACTIVITIES.
--- NOTE | 2021-12-05 10:05 | NUR ---
PATIENT WAS SUPPOSE TO HAVE AN ICD PLACEMENT BUT BECAME SEVERELY HYPOTENSIVE AND PROCEDURE NOT PERFORMED, PATIENT TRANSFERRED TO ICU. WILL PLACE PATIENT ON HOLD AND WILL NEED NEW ORDERS ONCE ABLE TO PARTICIPATE.
--- NOTE | 2021-12-05 12:22 | NUR ---
CARDIOLOGY INDICATED THAT THEY DON'T ANTICIPATE PROCEEDING WITH ICD PLACEMENT THIS ADMISSION. THEY ARE INITIATING PROCESS OF GETTING PT A LIFEVEST. CM HAD SPOKEN TO CARDIOLOGY RAILCAR FOREMAN COLTON JENNIE WEDNESDAY AFTERNOON AND INDICATED THAT HOSPITALIST HAD PUT IN TRANSFER ORDERS FOR CCU BUT THAT HAD STATED THAT HE FELT PT COULD BE MEDICALLY STABLE TO DC TO 5N ONCE LIFEVEST WAS AQUIRED. CARDIOLOGY RAILCAR FOREMAN INDICATED SHE WOULD INITIATE LIFEVEST ORDER PROCESS. CM NOTIFIED PT AND SPOUSE WELL 5N LIAISON. CM FOLLOWING. IT IS ANTICIPATED THAT PT MAY BE MEDICALLY STABLE TO DC TO 5N ONCE LIVEVEST IS AQUIRED.
--- NOTE | 2021-12-05 15:44 | NUR ---
Patient transfered to CCU room 213. Notified of transfer and new room number.
[2021-12-06 03:27] VITALS: BP 110/65
--- NOTE | 2021-12-06 03:46 | NUR ---
RECEIVED PATIENT AT 1900H.ASSESSMENT DONE CHARTED.SINUS RYTHM ON THE MONITOR, WITH PVC'S,BIGEMINY, VITALLY STABLE.TURNING DONE.MEDS GIVEN PER JAN.ALL NEEDS ATTENDED.TO CONTINOUSLY MONITOR
[2021-12-06 05:44] LABS: INR 1.13; PROTIME 12.2 Seconds (10.5-12.1)
[2021-12-06 07:37] VITALS: BP 131/92
[2021-12-06 11:38] VITALS: BP 108/44
[2021-12-06 15:08] VITALS: BP 115/71
--- NOTE | 2021-12-06 18:47 | NUR ---
ASSUMED CARE OF PAATIENT AT 0700. VSS THROUGHOUT SHIFT. REMAINED A&0X4, NO C/O PAIN. ACCU CHECKS ACHS, INSULIN GIVEN PER EMAR. PLACIDO DC'D AND REMOVED. PATIENT UP TO BSC FOR BM TODAY. PATIENT REMAINS ON MECHANICAL ALTERED DIET WITH NECTAR THICK LIQUIDS. WCTM
[2021-12-06 19:16] VITALS: BP 117/85
[2021-12-07 03:46] VITALS: BP 104/59
--- NOTE | 2021-12-07 03:49 | NUR ---
RECEIVED THE PATIENT AT 1900H.ASSESSMENT DONE CHARTED.SINUS RYTHM ON THE MONITOR WITH FREQUENT PVC'S, BIGEMINY,VITALLY STABLE.MEDS GIVEN PER JAN.ALL NEEDS ATTENDED.TO CONTINOUSLY MONITOR.
[2021-12-07 07:00] VITALS: BP 117/64
[2021-12-07 07:49] LABS: INR 1.15; PROTIME 12.5 Seconds (10.5-12.1)
[2021-12-07 12:00] VITALS: BP 109/73
[2021-12-07 13:35] LABS: CALCIUM 8.4 mg/dL (8.5-10.1); CREATININE 2.6 mg/dL (0.7-1.3)
--- NOTE | 2021-12-07 16:23 | NUR ---
ASSUMED CARE OF PATIENT AT 0700. PATIENT REMAINS A&OX4, ON RA, AND IN NSR ON TELE. ACCU CHECKS COMPLETED PER ORDER AND TREATED NEEDED. PATIENT UP TO CHAIR FOR PART OF SHIFT, UP WITH ONE AND GB. ABLE TO USE URINAL AT BEDSIDE BUT IS KNOW TO HAVE ACCIDENTS.
[2021-12-07 17:00] VITALS: BP 108/76
[2021-12-07 20:11] VITALS: BP 148/90
[2021-12-08] VITALS (7 sets, daily range): BP systolic 87–114; BP diastolic 54–70
[2021-12-08] MEDS ORDERED: PACERONE 200 M200 M1 PO (10:00)
[2021-12-08] MEDS ORDERED: DEMADEX20 MG PO (10:00)
[2021-12-08] MEDS ORDERED: KLOR-CON 1010 MEQ PO (10:00)
--- NOTE | 2021-12-08 14:16 | HC ---
[facility] [place] [address] CONSULTATION Name: RUBEN DONOHUE Room #: 213-P ADM IN M.R.#: [id number] Admission: 11/21/21 Attend Phys: Willie Lopez MD Discharge: Date of : 61 Report #: [id number] THIS REPORT FOR: cc: Courtney Martinez MD, Angela Michelle MD Khosla, Parveen K. MD ~ DATE OF SERVICE: 11/26/2021 HISTORY OF PRESENT ILLNESS: This is a 56-year-old male patient who was evaluated by me to prognosticate this patient from hypoxic encephalopathy. This patient had a cardiopulmonary arrest. He is on hypothermia protocol. The patient was discussed with the nurse. The patient's records were reviewed and a code blue note was reviewed. This patient came in with a cardiac complaint and that was an epigastric pain and the question was whether it is a GI pathology or whether it is CVS pathology. He was seen by multiple consultants, which include Cardiology, GI and Nephrology. Then, he had this cardiorespiratory arrest. I am not sure what the etiology is, but in any event, it was in-hospital arrest and it was noticed the patient started having agonal breathing. There was some question of even the patient may have had a response, but that is difficult to tell at the moment. Neurology consultation is being requested for prognosticating the patient and that is what we will confine ourselves though. REVIEW OF SYSTEMS: Pretty extensive in this patient. He has a history of COPD, home oxygen use, hyperlipidemia, hypertension, chronic kidney disease, history of gastric bypass, coronary artery disease with a stent put in, gastric ulcer. This was his relevant 14-point review of system. PAST MEDICAL HISTORY: Not available to me because of the patient's condition. FAMILY HISTORY: From the record, apparently ____ diabetes as I understand. SOCIAL HISTORY: Used to smoke and drink alcohol in the past. PHYSICAL EXAMINATION: His examination was pretty limited. He did not respond, but looks like there may be a trace movement in the eyelid. His pupils were actually small and I cannot tell if they are reactive at all, but he does appear to have either upgoing toes or plantars reflexes are uniformly diminished the best I can tell. Thus, all the examination is possible is a reasonably well-developed individual. VITAL SIGNS: Blood pressure is 107/75, respiration is 16, pulse is 60. LABORATORY DATA: He is anemic with the hemoglobin of 8.4. His GFR is only 16. He does not appear to have any marked edema. Cardiac examination appear unremarkable. He did not have any imaging study of the brain. IMPRESSION AND PLAN: Cardiopulmonary arrest. We will run testing to see if [address] [address] CONSULTATION Name: CHARANJITRUBEN Room #: 213-P [facility] IN ..#: [id number] Admission: 11/21/21 Attend Phys: Willie Lopez MD Discharge: Date of : 61 Report #: [id number] there is any hypoxic damage and tried to prognosticate him. We will follow up tomorrow. Hopefully, he will be off hypothermia protocol and if he is still not waking up, then we will do an EEG and sometime along the line he probably has to go to imaging studies of the brain. Thank you very much for this referral. <ELECTRONICALLY SIGNED> By: Jarrett Velásquez MD 12/08/21 1416 1057 09 Jarrett Velásquez MD /nt
--- NOTE | 2021-12-08 14:17 | EEG ---
[facility] [place] [address] ELECTROENCEPHALOGRAM Name: RUBEN DONOHUE Room #: 213-P ADM IN M.R.#: [id number] Admission: 11/21/21 Attend Phys: Willie Lopez MD Discharge: Date of : 61 Report #: [id number] THIS REPORT FOR: //name// DATE OF SERVICE: 11/28/2021 This patient is being evaluated for encephalopathy. EEG was done by placing the electrode by standard 10-20 system of electrode placement. Both referential and sequential montages were used for recording. Background activity is poorly formed. It goes up to 4-5 Hz but most of the time stays lower than that. It is about 10 microvolt. Photic stimulation is unremarkable. No active epileptiform activity was noticed. IMPRESSION: This is a severely abnormal EEG which is disorganized and poorly formed. That is a nonspecific abnormality which can occur with encephalopathy, effect of psychotropic medication, dementia, etc. Clinical correlation is recommended. <ELECTRONICALLY SIGNED> By: Jarrett Velásquez MD 12/08/21 1417 1806 [id number] Jarrett Velásquez MD /nt
--- NOTE | 2021-12-08 15:10 | NUR ---
TOOK OVER CARE OF THIS PATIENT AT 0700. PT IRRITABLE AND VERBALLY AGGRESSIVE TOWARDS ALL STAFF MEMBERS. PT YELLS "GET OUT" AT ALL STAFF WHO ATTEMPT TO ENTER OR PROVIDE CARE FOR PATIENT. PT REFUSED TO WORK WITH OCCUPATIONAL THERAPY. PT REPORTS HE HASN'T SLEPT IN "FOUR DAYS." THIS NURSE FINDS PATIENT ASLEEP IN RECLINER OR IN BED WHEN COMPLETING HOURLY ROUNDING. ASSESSMENTS CHARTED; VSS. ZOOL LIFE [facility]ST FITTED TODAY. DENIES ANY NEEDS AT THIS TIME. FALL PRECAUTIONS IN PLACE. CALLL LIGHT WITHIN REACH.
--- NOTE | 2021-12-08 15:14 | NUR ---
PATIENT CONSUMED TWO TEASPOONS OF THIN LIQUID WATER BEFORE REFUSING FURTHER INTAKE AND TX. COLD FOOD PACKER EXPLAINED PURPOSE OF TX, HOWEVER THIS WAS INEFFECTIVE AND THE PATIENT BECAME INCREASINGLY AGITATED. PATIENT PRESENTED WITH OVERT GURGLED VOCAL QUALITY AND COUGH WITH THIN LIQUID, WELL REFUSAL TO COMPLETE TRIALS, NO DIET UPGRADES CAN BE MADE AT THIS TIME- CONTINUE MECHANICAL SOFT DIET WITH NECTAR THICK LIQUIDS. PATIENT STATED: "I HAVEN'T SLEPT IN FOUR DAYS, LEAVE ME ALONE." IT SHOULD BE NOTED THE PATIENT WAS SLEEPING WHEN THE COLD FOOD PACKER ARRIVED.
--- NOTE | 2021-12-08 16:34 | NUR ---
CM MET WITH PT THIS DAY. FELY WITH [facility] INFORMED THIS CM HE WOULD HAVE REP OUT THIS EVENING TO FIT FOR [facility]. PT REPORTS HE WANTS TO GO HOME WITH HH. REFERRAL SENT TO [facility] PER PT REQUEST. HE HAS HAD THEM IN THE PAST. CM WILL FOLLOW.
--- NOTE | 2021-12-08 16:57 | NUR ---
JANET WITH [facility] REPORTS THEY WILL ACCEPT PT ONCE MEDICALLY STABLE TO DC THEY HAVE HAD PT IN THE PAST. CALL [facility] -[phone] AND FAX DC ORDERS AND SUMMARY TO [phone] SHOULD PT DC BE MEDICALLY STABLE TO DC.
[2021-12-08] MEDS ORDERED: PROTONIX 20 MG20 M1 PO (17:37)
[2021-12-08] MEDS ORDERED: CARAFATE 11 GM/10 M1 PO (17:37)
[2021-12-08] MEDS ORDERED: PROAIR HFA8.5 GM INH (17:38)
[2021-12-08] MEDS ORDERED: PREDNISONE 10 M10 M1 PO (17:41)
--- NOTE | 2021-12-08 18:40 | NUR ---
PT NOW REFUSING TO GO HOME DESPITE DISCHARGE ORDERS PLACED BY DOCTOR. PT REPORTS HE LEAVES 2 HOURS AWAY AND HAS NO FAMILY AVAILABLE TO PICK HIM UP. PATIENT HAS ZOLL MONITOR ON. THIS NURSE HAS ATTEMPTED TO CALL DR. OCONNELL REGARDING PATIENT'S REFUSAL TO LEAVE TONIGHT. HAVE NOT RECEIVED A CALL FROM DR. OCONNELL YET.
--- NOTE | 2021-12-09 03:34 | NUR ---
Assumed pt care at 1900. Pt is alert and oriented. No sign of distress noted in pt. Denies pain. Fall precaution in place. Assessment completed and documented. Scheduled meds administered to pt. No acute event during the night. Pending discharged today. Continue to monitor. No further needs at this time.
[2021-12-09 04:24] VITALS: BP 90/45
--- NOTE | 2021-12-09 10:41 | NUR ---
TOOK OVER CARE OF THIS PATIENT AT 0700. PT VERBALLY AGGRESSIVE WITH STAFF, USING CURSE WORDS, PT IS ANGRY, IRRITABLE, HOSTILE. PT STATES HE CAN NOT GO HOME SINCE HE HAS NO CLOTHING; EDUCATED PATIENT THAT WE HAVE CLOTHES HE CAN GO HOME IN. SPOKE TO SHE STATED SHE WILL BE HERE TO TAKE HIM HOME AT 1200. PT REFUSING TO WORK WITH ALL THERAPIES. PT DENIES SOA, CHEST PAIN, OR ANY OTHER NEEDS. FALL PRECAUTIONS IN PLACE AND CALL LIGHT WITHIN REACH.
[2021-12-09 11:14] VITALS: BP 96/62
--- NOTE | 2021-12-09 11:49 | NUR ---
PT MEDICALLY STABLE TO DC HOME WITH HH THIS DAY. PT WILL DISCHARGE WITH [facility]. ORDERS FAXED TO [facility] AND RECEIVED FAX CONFIRMATION FAX WAS RECEIVED. PT AND NURSE AWARE. THIS SPOKE TO PTS CONTACT SIG OTHER GILLIANI VIA PHONE AND SHE IS AWARE WELL. NO FURTHER CM NEEDS NEEDED.
--- NOTE | 2021-12-09 11:55 | NUR ---
DISCHARGE INSTRUCTIONS GIVEN TO PATIENT AND SPOUSE AT THIS TIME. PT AGREEABLE TO DISCHARGE PLAN AND AGREES TO FOLLOWUP CARE. PATIENT LEFT WITH ALL BELONGINGS. PRESCRIPTIONS FROM DR. OCONNELL GIVEN TO PATIENT. PATIENT AND SPOUSE HAVE NO QUESTIONS. DISCHARGED VIA PERSONAL VEHICLE.
== END 2021-12-09 12:00 | disposition home health service (06) | DRG 207 ==
LOC: 2N 04:41 → ICU 11-25 17:30 → 2N 12-02 22:42 → ICU 12-04 15:48 → 2N 12-05 15:33
PROVIDERS: Anesthesiology; Hospitalist; Internal Medicine; Internal Medicine Cardiovascular Disease; Internal Medicine Nephrology; Internal Medicine Pulmonary Disease; Nurse Practitioner; Nurse Practitioner Adult Health; Nurse Practitioner Family; Pediatrics; ADMIT Hospitalist; ATTEND Hospitalist
PROC: 0BH17EZ Insertion of Endotracheal Airway into Trachea, Via Natural or Artificial Opening (ICD-10-PCS; principal; 2021-11-25)
PROC: 02HV33Z Insertion of Infusion Device into Superior Vena Cava, Percutaneous Approach (ICD-10-PCS; principal; 2021-11-25)
PROC: 5A1955Z Respiratory Ventilation, Greater than 96 Consecutive Hours (ICD-10-PCS; principal; 2021-11-25)
PROC: 5A12012 Performance of Cardiac Output, Single, Manual (ICD-10-PCS; principal; 2021-11-25)
DX: J96.01 Acute respiratory failure with hypoxia (principal); E43 Unspecified severe protein-calorie malnutrition; I46.9 Cardiac arrest, cause unspecified; N17.0 Acute kidney failure with tubular necrosis; I49.01 Ventricular fibrillation; G92.8 Other toxic encephalopathy; R57.0 Cardiogenic shock; I50.23 Acute on chronic systolic (congestive) heart failure; I47.2 Ventricular tachycardia; I24.0 Acute coronary thrombosis not resulting in myocardial infarction; G72.81 Critical illness myopathy; I13.0 Hypertensive heart and chronic kidney disease with heart failure and stage 1 through stage 4 chronic kidney disease, or unspecified chronic kidney disease; E87.5 Hyperkalemia; Z20.822 Contact with and (suspected) exposure to COVID-19; E78.5 Hyperlipidemia, unspecified; M19.90 Unspecified osteoarthritis, unspecified site; F31.9 Bipolar disorder, unspecified; E11.22 Type 2 diabetes mellitus with diabetic chronic kidney disease; I25.5 Ischemic cardiomyopathy; N18.30 Chronic kidney disease, stage 3 unspecified; E78.00 Pure hypercholesterolemia, unspecified; E83.42 Hypomagnesemia; D50.9 Iron deficiency anemia, unspecified; E87.70 Fluid overload, unspecified; I27.20 Pulmonary hypertension, unspecified; R91.1 Solitary pulmonary nodule; J44.9 Chronic obstructive pulmonary disease, unspecified; D63.8 Anemia in other chronic diseases classified elsewhere; K59.00 Constipation, unspecified; R13.10 Dysphagia, unspecified; Z53.8 Procedure and treatment not carried out for other reasons; Z95.5 Presence of coronary angioplasty implant and graft; Z86.718 Personal history of other venous thrombosis and embolism; Z87.891 Personal history of nicotine dependence; Z83.3 Family history of diabetes mellitus; Z82.49 Family history of ischemic heart disease and other diseases of the circulatory system; Z83.6 Family history of other diseases of the respiratory system; Z71.6 Tobacco abuse counseling; Z98.84 Bariatric surgery status
CPT/HCPCS: 10078; 10081; 10203; 65040; 70005